=== PATIENT | female | born 1980 | race Two or more races ===

== ENCOUNTER 2017-07-05 08:37 | Emergency (ER) | payer MEDICAID ==
[~2017-07-05] VITALS: Ht 160 cm; Wt 113.4 kg
[2017-07-05] MEDS ORDERED: UNOBMED (08:45)
--- NOTE | 2017-07-05 09:30 | Emergency Room Report ---
History of Present Illness General Chief Complaint: Skin Rash/Abscess Source: Patient Present Illness HPI This patient states that she has had a rash in the folds under both her breasts and in between her breasts. She states that she did see a patient registration manager. She was initially given triamcinolone that worsened her skin condition. She states that she then was given nystatin cream mixed with triamcinolone and has been using that without relief. She states that her rashes gotten worse. She states that the area arnold. She denies any other skin rash or lesions. She denies fever or chills. She has no other complaints. Allergies: Coded Allergies: No Known Allergies (Unverified , 07/05/17) Patient History Past Medical History: none Social History: Denies: smoking, alcohol use, drug use Reviewed Nursing Documentation: PMH: Agreed; PSxH: Agreed Nursing Documentation-PMH Past Medical History: No Stated History Review of Systems All Other Systems: negative except mentioned in HPI Physical Exam Vital Signs Date Time Temp Pulse Resp B/P (MAP) Pulse Ox O2 Delivery O2 Flow Rate FiO2 07/05/17 08:41 98.3 88 16 111/67 94 Room Air 98.2 Sp02 EP Interpretation: reviewed, normal General Appearance: no apparent distress, alert, GCS 15, non-toxic Head: normocephalic, atraumatic Eyes: bilateral eye normal inspection, bilateral eye PERRL ENT: hearing grossly normal, normal pharynx, no angioedema, normal voice Neck: full range of motion, supple/symm/no masses Respiratory: chest non-tender, lungs clear, normal breath sounds, speaking full sentences Cardiovascular #1: regular rate, rhythm, no edema Gastrointestinal: normal bowel sounds, non tender, soft, non-distended, no guarding, no rebound Rectal: deferred Musculoskeletal: back normal, gait/station normal, normal range of motion, non- tender Neurologic: alert, oriented x3, responsive, motor strength/tone normal, sensory intact, speech normal Psychiatric: judgement/insight normal, memory normal, mood/affect normal, no suicidal/homicidal ideation Skin: well hydrated, other - Erythematous confluent rash with satellite lesions in the bilateral mammillary folds and between the breasts. Lymphatic: no adenopathy Medical Decision Making Diagnostic Impression: Primary Impression: Candidal dermatitis ER Course This patient has a skin rash consistent with candidal dermatitis. I will place her on triple cream to include nystatin cream. I also educated the patient on skin and a rash care to include keeping the skin dry and providing a thick layer of the cream. This does not appear to be a cellulitis. I do not feel antibiotics are indicated. The patient is also instructed to follow-up with the patient registration manager caring for her. At this time, I did not identify an emergency medical condition. The patient is given return precautions and follow -up instructions. Last Vital Signs Date Time Temp Pulse Resp B/P (MAP) Pulse Ox O2 Delivery O2 Flow Rate FiO2 07/05/17 08:41 98.3 88 16 111/67 94 Room Air 98.2 Status: improved Disposition: HOME, SELF-CARE Condition: Improved Referrals: NOT APPLICABLE THIS PATIENT,RE (PCP) CAROLINA SMITH D.O. July 05, 2017 09:30
[2017-07-05] MEDS ORDERED: FLUCONAZOLE100 MG ORAL (09:54)
[2017-07-05] MEDS ORDERED: NYSTATIN1 EAC1 TOPIC (09:54)
[2017-07-05] MEDS ORDERED: CLOTRIMAZOLE15 GM TOPIC (09:54)
[2017-07-05 10:10] VITALS: BP 111/67
== END 2017-07-05 10:12 | disposition home or self-care (01) ==
LOC: EMR 09:13
DX: R21 Rash and other nonspecific skin eruption (principal); L30.8 Other specified dermatitis; B37.89 Other sites of candidiasis
CPT/HCPCS: 99283